=== PATIENT | male | born 1995 | race Caucasian/White ===

== ENCOUNTER 2020-10-16 18:31 | Emergency (ER) | payer SELFPAY ==
[2020-10-16 18:44] VITALS: BP 149/91
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
[2020-10-16] MEDS ORDERED: IBUPROFEN 800 MG TAB PO ONE (18:57)
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
== END 2020-10-16 20:00 | disposition home or self-care (01) ==
LOC: ED 18:31
DX: S20.219A Contusion of unspecified front wall of thorax, initial encounter (principal); S40.012A Contusion of left shoulder, initial encounter; Z79.1 Long term (current) use of non-steroidal anti-inflammatories (NSAID); Z79.899 Other long term (current) drug therapy; Z88.8 Allergy status to other drugs, medicaments and biological substances; V47.5XXA Car driver injured in collision with fixed or stationary object in traffic accident, initial encounter; W22.10XA Striking against or struck by unspecified automobile airbag, initial encounter; Y93.89 Activity, other specified; Y92.410 Unspecified street and highway as the place of occurrence of the external cause; Y99.8 Other external cause status